=== PATIENT | female | born 1990 | race Caucasian/White ===

== ENCOUNTER 2018-07-10 17:32 | Emergency (ER) | payer MEDICAID ==
[~2018-07-10] VITALS: Ht 154.9 cm; Wt 57.2 kg
[2018-07-10 17:43] VITALS: BP 113/72
--- NOTE | 2018-07-10 17:55 | NUR ---
PT PRESENT TO ED W/ C/O ABD PAIN W/ N/V SINCE THIS MORNING; PER PT SHE WAS DX W/ LT OVARIAN CYST AND THOUGHT IT RUPTURED CAUSING HER ABD PAIN RADIATING TO HEERR BACK AND LT LEG;PT IS 14 WEEKS ;AAOX 4;SAFTETY MEASURES INSTITUTED;NEEDS ATTENDED;ALL MONITORS IN PLACED;ERMD AWARE OF PT'S CONDITION.
--- NOTE | 2018-07-10 17:57 | NUR ---
López bob in [facility] - 07/10/18 at 1842 by ORTEGA [place]
[2018-07-10] MEDS ORDERED: ONDANSETRON 4 MG ODT ONE (18:04)
[2018-07-10 18:55] LABS: APPEARANCE,URINE CLEAR (CLEAR); BILIRUBIN,URINE NEGATIVE (NEGATIVE); BLOOD, URINE NEGATIVE (NEGATIVE); COLOR,URINE YELLOW (YELLOW); LEUKOCYTE ESTERASE ,URINE 1+ (NEGATIVE); NITRITE, URINE NEGATIVE (NEGATIVE); UGLUCOSE NEGATIVE (NEGATIVE)
--- NOTE | 2018-07-10 19:19 | NUR ---
ULTRASOUND AT BEDSIDE
--- NOTE | 2018-07-10 19:22 | NUR ---
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 PT VITALS STABLE
--- NOTE | 2018-07-10 19:28 | NUR ---
PT IN BED. VITALS STABLE. ULTRASOUND AT BEDSIDE.
[2018-07-10 19:51] LABS: RBC,URINE 0-5 (RARE) /HPF (0-5)
--- NOTE | 2018-07-10 20:49 | NUR ---
Dr. Burt evaluating patient at bedside.
--- NOTE | 2018-07-10 21:25 | NUR ---
Patient discharged with v/s stable. Written and verbal after care instructions given and explained. Patient alert, oriented and verbalized understanding of instructions. Ambulatory with steady gait. All questions addressed prior to discharge. ID band removed. Patient advised to follow up with PMD. Rx of MACROBID, MOTRIN given. Patient educated on indication of medication including possible reaction and side effects. Opportunity to ask questions provided and answered.
[2018-07-10 21:27] VITALS: BP 116/58
== END 2018-07-10 21:25 | disposition home or self-care (01) ==
LOC: MED 17:32
DX: O34.82 Maternal care for other abnormalities of pelvic organs, second trimester (principal); N83.202 Unspecified ovarian cyst, left side; O23.42 Unspecified infection of urinary tract in pregnancy, second trimester; Z3A.16 16 weeks gestation of pregnancy
CPT/HCPCS: 76805; 81001; 81025; 87086; 99285; Q0092; S0119

== ENCOUNTER 2021-01-01 10:24 | Emergency (ER) | payer MEDICAID, OTHER ==
[~2021-01-01] VITALS: Ht 154.9 cm; Wt 63.5 kg
[2021-01-01 10:26] VITALS: BP 120/80
[2021-01-01] MEDS ORDERED: ONDANSETRON 4 MG/2 ML VIAL IVP ONE ×2 (10:35→12:00)
[2021-01-01] MEDS ORDERED: NACL 0.9% 1,000 ML IV ONE (10:35)
[2021-01-01] MEDS ORDERED: MORPHINE SULFATE 4 MG/ML SYR IVP ONE ×2 (10:40→11:50)
[2021-01-01 12:28] VITALS: BP 120/80
[2021-01-04] MEDS ORDERED: IBUP-2213 PO (10:54)
[2021-01-04] MEDS ORDERED: ONDA4TAB PO (10:54)
[2021-01-04] MEDS ORDERED: ACET-8386 PO (10:54)
[2021-01-06] MEDS ORDERED: ACET-5629 PO (13:32)
[2021-01-06] MEDS ORDERED: IBUP-2213 PO (13:34)
== END 2021-01-01 12:28 | disposition home or self-care (01) ==
LOC: MED 10:24
DX: N83.292 Other ovarian cyst, left side (principal)
CPT/HCPCS: 76856; 81002; 81025; 96361; 96374; 96375; 96376; 99284; J2270; J2405; J7030